=== PATIENT | female | born 1950 | race Caucasian/White ===

== ENCOUNTER → 2023-01-01 11:45 | Outpatient (CLI) | payer MEDICARE, OTHER, SELFPAY | PROVIDERS: PCP Family Medicine; Referring Provider Family Medicine; Visit Provider Family Medicine | DX: R06.02 Shortness of breath (principal); Z87.891 Personal history of nicotine dependence; J98.8 Other specified respiratory disorders | CPT/HCPCS: 94060; 94726; 94729 ==

== ENCOUNTER → 2024-01-29 12:56 | Outpatient (CLI) | payer MEDICARE, OTHER, SELFPAY ==
--- NOTE | 2024-01-29 12:58 | DI.ECHO.S_ITS ---
[facility] : : [address] : : [place] : : [id number] : : Phone: [phone] Echocardiogram Report + + :Name: JÚNIOR HURTADO Study Date: 01/29/2024 Height: 67 in : :[facility] ReadingLocation: Weight: 295 lb : : Gender: Female BSA: 2.4 m2 : :: 1950 Age: 73 yrs BP: 120/74 mmHg: :Reason For Study: SYSTOLIC HEART FAILURE : :Ordering Physician: NICANOR WOOD Performed By: Joss Webster : :Referring: NICANOR WOOD : + + Interpretation Summary 1. The left ventricular contractility is severely compromised. Estimate ejection fraction is approximate 25 to 30% with global hypokinesis and paradoxical septal motion suggesting the presence of a bundle branch block. No intracardiac masses nor thrombi appreciated. 2. No hemodynamically significant pericardial effusion identified. 3. In limited views, the right ventricular contractility appears to be borderline. Conclusion: Severely compromised left ventricular systolic function. Procedure: A two-dimensional transthoracic echocardiogram with color flow and Doppler was performed in limited views only. A contrast injection of Definity was performed to improve assessment of LV function. The study quality was technically difficult. Comparison is made with the echocardiogram of 09/22/2023. The patient was in normal sinus rhythm during the exam. Left Ventricle: The left ventricle is normal in size. Left ventricular wall thickness is mildly increased. The ejection fraction is estimated to be 25- 30%. There are regional wall motion abnormalities as specified. MMode/2D Measurements & Calculations LVIDd: 5.6 cm LVIDs: 4.6 cm FS: 18.0 % IVSd: 1.1 cm LVPWd: 1.2 cm LV linton. diameter/BSA (cm/m^2): 2.4 LV sys. diameter/BSA (cm/m^2): 1.9 Reading Physician:
== END ==
PROVIDERS: PCP Family Medicine; Referring Provider Internal Medicine; Visit Provider Internal Medicine
DX: I50.22 Chronic systolic (congestive) heart failure (principal)
CPT/HCPCS: C8929; Q9957

== ENCOUNTER → 2024-11-05 12:37 | Outpatient (CLI) | payer MEDICARE, OTHER, SELFPAY ==
--- NOTE | 2024-11-05 12:39 | DI.CT.S_ITS ---
PROCEDURE: CT HEAD/BRAIN WO CON INDICATIONS: Dizziness TECHNIQUE: Noncontrast 4.5 mm thick angled axial sections acquired from the foramen magnum to the vertex, with coronal and sagittal reformats. For radiation dose reduction, the following was used: automated exposure control, adjustment of mA and/or kV according to patient size. COMPARISON: None. FINDINGS: Image quality: Diagnostic. CSF spaces: Basal cisterns are patent. No extra-axial fluid collections. The ventricles are symmetric in size and shape. Brain: No intracranial bleeds or mass effect. There is cerebral volume loss, with resultant ventricular and sulcal prominence. There are periventricular and deep white matter chronic small vessel ischemic changes. There is intracranial internal carotid artery atherosclerosis. Skull and face: Calvarium and visualized facial bones appear intact, without suspicious lesions. Sinuses: Visualized sinuses and mastoids are clear. IMPRESSION: No CT evidence of acute intracranial process. Age-appropriate cerebral cortical volume loss and chronic microvascular ischemic changes. Dictated by: Katya Reece M.D. on 11/06/2024 at 1:15 Approved by: Katya Reece M.D. on 11/06/2024 at 1:16
== END ==
LOC: CT 12:38
PROVIDERS: PCP Family Medicine
DX: R42 Dizziness and giddiness (principal); I65.29 Occlusion and stenosis of unspecified carotid artery
CPT/HCPCS: 70450